=== PATIENT | male | born 1980 | race Caucasian/White ===

== ENCOUNTER 2016-07-01 12:30 | Inpatient (IN) | payer SELFPAY ==
[2016-07-01] VITALS (20 sets, daily range): BP systolic 61–148; BP diastolic 40–105; PULSE 77–150; TEMP 31.3–34.9; O2SAT 88–96
[2016-07-01] MEDS ORDERED: LORAZEPAM 2 MG/ML 1 ML VIAL ONE ×2 (12:35→16:25)
[2016-07-01] MEDS ORDERED: SODIUM CHLORIDE 0.9% INJ 10 ML VIAL ONE (12:35)
[2016-07-01] MEDS ORDERED: SODIUM CHLORIDE 0.9% 1000ML 1,000 ML IV STA ×2 (12:37→14:20)
[2016-07-01] MEDS ORDERED: SODIUM BICARB 8.4% INJ 50 MEQ/50 ML SYR IV ONE ×2 (12:55→12:57)
[2016-07-01 12:56] LABS: HEMATOCRIT 48.1 % (42-52); MEAN CELL VOLUME 95.1 fL (80-100); MEAN CORPUSCULAR HGB CONC 34.7 g/dl (32-36); MEAN PLATELET VOLUME 11.9 fL (7.4-10.4); PLATELET COUNT 218 K/uL (130-400); RED BLOOD COUNT 5.06 M/uL (4.7-6.1); WHITE BLOOD COUNT 11.46 K/uL (4.8-10.8)
[2016-07-01] MEDS ORDERED: FOMEPIZOLE IV STA (12:56)
[2016-07-01] MEDS ORDERED: DEXTROSE 5% IV STA (12:56)
[2016-07-01 13:02] LABS: ISTAT HEMOGLOBIN 16.7 g/dl (14.0-18.0); ISTAT IONIZED CALCIUM 1.23 mmol/l (1.12-1.32)
[2016-07-01 13:05] LABS: INR 1.1 (0.9-1.1); PARTIAL THROMBOPLASTIN RATIO 1.1; PROTHROMBIN TIME (PATIENT) 11.5 SECONDS (9.0-12.0)
[2016-07-01 13:06] LABS: ISTAT ARTERIAL BLOOD GAS HCO3 24 meq/L (19-24); ISTAT ARTERIAL BLOOD GAS PCO2 > 115 mmHg (35-46); ISTAT ARTERIAL BLOOD GAS PO2 290 mmHg (80-95); ISTAT CARBON DIOXIDE 28 mEq/l (24-31); ISTAT HEMATOCRIT 46 % (42-52); ISTAT HEMOGLOBIN 15.6 g/dl (14.0-18.0); ISTAT SODIUM 139 mEq/L (135-144)
[2016-07-01 13:18] LABS: BENZODIAZEPINE, URINE NEG (NEG); COCAINE,URINE NEG (NEG); MANUAL MICROSCOPIC REQUIRED? YES; PHENCYCLIDINE, URINE NEG (NEG); URINE APPEARANCE TURBID (CLEAR); URINE BILIRUBIN NEG (NEG); URINE COLOR YELLOW; URINE NITRITE NEG (NEG); URINE PH 6.5 (4.5-7.5); URINE SPECIFIC GRAVITY 1.025 (1.000-1.030); UROBILINOGEN NEG (NEG)
[2016-07-01 13:20] LABS: ALT/SGPT 35 U/L (12-78); AST/SGOT 27 U/L (15-37); BLOOD UREA NITROGEN 14 mg/dl (7-18); BUN/CREATININE RATIO 9.3 (10-20); CALCIUM 8.6 mg/dl (8.5-10.1); CARBON DIOXIDE 23 mmol/L (21-32); CHLORIDE 106 mmol/L (98-107); GLUCOSE 253 mg/dl (70-99); POTASSIUM 3.2 mmol/L (3.5-5.1); SODIUM 144 mmol/L (136-145)
[2016-07-01 13:21] LABS: REVIEW REQ? NO
[2016-07-01 13:31] LABS: ACETAMINOPHEN < 2 ug/ml (10-30); ALB/GLOB RATIO 1.5 (0.9-2); ALKALINE PHOSPHATASE 63 U/L (45-117); CKMB/CK RATIO 0.9 (0-3.0)
--- NOTE | 2016-07-01 13:32 | DIAGNOSTIC IMAGING REPORT ---
CHEST ONE VIEW PORTABLE CLINICAL HISTORY: Atypical chest pain. Cardiac arrest. COMPARISON STUDY: No previous studies for comparison. FINDINGS: The heart is normal in size. There is an endotracheal tube 34 mm above the jordan. There are patchy left basilar airspace opacities. This could represent pneumonia, aspiration, or atelectasis. No pleural effusions are visualized on the supine study. A focus of increased density injected over the left hemidiaphragm medially, likely represents fluid in the stomach.[ There is no failure. IMPRESSION: 1. Endotracheal tube 34 mm above the jordan 2. Patchy left basilar airspace opacities Electronically signed by: Marino Marshall M.D. 07/01/2016 1:31 PM Dictated Date/Time: 07/01/2016 1:29 PM
[2016-07-01] MEDS ORDERED: [UNRECOGNIZED DRUG - OTHER] IV ONE (13:35)
--- NOTE | 2016-07-01 13:43 | DIAGNOSTIC IMAGING REPORT ---
CT HEAD WITHOUT CONTRAST (CT) CLINICAL HISTORY: Cardiac arrest. Overdose. Patient in coma. COMPARISON STUDY: No previous studies for comparison. TECHNIQUE: Axial CT of the brain is performed from the vertex to the skull base. IV contrast was not administered for this examination. CT DOSE: 1237.28 mGy.cm FINDINGS: No intra or extra-axial mass lesions are visualized. There is no CT evidence of acute cortical infarction. There is no evidence of midline shift. There is no acute hemorrhage. No calvarial fractures are visualized. There is no evidence of pathologic ventricular dilatation. There are bilateral maxilla sinus air-fluid levels. There are bilateral sphenoid sinus air-fluid levels. There is opacification of several ethmoid air cells. There is a small left frontal sinus air-fluid level. IMPRESSION: 1. Pansinus disease 2. No acute intracranial findings. Electronically signed by: Marino Marshall M.D. 07/01/2016 1:41 PM Dictated Date/Time: 07/01/2016 1:40 PM
--- NOTE | 2016-07-01 13:46 | DIAGNOSTIC IMAGING REPORT ---
CT OF THE CERVICAL SPINE CLINICAL HISTORY: Trauma. Overdose. Cardiac arrest. Patient in coma. COMPARISON STUDY: No previous studies for comparison. CT DOSE: TECHNIQUE: CT scan of the cervical spine was performed from the skull base to the thoracic inlet. Images are reviewed in the axial, sagittal, and coronal planes. IV contrast was not administered for this examination. FINDINGS: There is an indwelling endotracheal tube. There is no pneumothorax. There is a right maxillary sinus air-fluid level. The prevertebral soft tissues are normal. No fractures or subluxations are visualized. There are multilevel degenerative changes IMPRESSION: No evidence of acute fracture or traumatic subluxation. Electronically signed by: Marino Marshall M.D. 07/01/2016 1:45 PM Dictated Date/Time: 07/01/2016 1:42 PM
[2016-07-01 13:49] LABS: URINE SPERM PRESENT (NONE PRSENT)
--- NOTE | 2016-07-01 13:49 | DIAGNOSTIC IMAGING REPORT ---
CT SCAN OF THE THORACIC SPINE WITHOUT IV CONTRAST CLINICAL HISTORY: Fall. COMPARISON STUDY: Lateral chest x-ray dated 08/10/2008. TECHNIQUE: CT scan of the thoracic spine is performed from the lower cervical spine to the upper lumbar spine. Images are reviewed in the axial, sagittal, and coronal planes. IV contrast was not administered for this examination. FINDINGS: The skeletal structures are well mineralized. There is no evidence of fracture or malalignment. Vertebral body height and alignment are maintained throughout the thoracic spine. The transverse and spinous processes appear intact. No lytic or blastic lesions are seen. The intervertebral disc spaces are preserved. The visualized posterior ribs appear intact. A hemangioma is noted in the body of T3. The paraspinous soft tissues are normal as visualized. An endotracheal tube terminates above the jordan. There are trace pleural effusions with bibasilar consolidation, left greater than right. No pneumothorax is identified. Layering secretions are seen in the trachea and mainstem bronchi. IMPRESSION: 1. There is no evidence of fracture or malalignment involving the thoracic spine. 2. Trace pleural effusions with bibasilar consolidation. This could represent atelectasis, an aspiration event, and/or developing pneumonia. Clinical correlation will be required. Electronically signed by: Shyam Mancia M.D. 07/01/2016 1:47 PM Dictated Date/Time: 07/01/2016 1:42 PM
[2016-07-01 13:50] LABS: URINE BACTERIA 1+ (NEG)
--- NOTE | 2016-07-01 13:52 | DIAGNOSTIC IMAGING REPORT ---
LUMBAR SPINE CT CT DOSE: HISTORY: Trauma. Pain. fall TECHNIQUE: Multiaxial CT images of the lumbar spine were performed and reformatted in the sagittal and coronal plane without the use of contrast. COMPARISON: None. FINDINGS: Normal alignment of the vertebral bodies. No evidence for compression deformity. Posterior elements are intact. Mild degenerative intervertebral this change L2-L3 with mild anterior osteophytic formation at the anterior superior margin of the L3 vertebral body. IMPRESSION: No acute process Electronically signed by: Jeff Llamas M.D. 07/01/2016 1:51 PM Dictated Date/Time: 07/01/2016 1:47 PM
--- NOTE | 2016-07-01 13:53 | DIAGNOSTIC IMAGING REPORT ---
CT OF THE CHEST WITHOUT IV CONTRAST CLINICAL HISTORY: Trauma. Cardiac arrest. Overdose. Patient in coma. COMPARISON STUDY: 03/18/2010 CT DOSE: TECHNIQUE: CT of the thorax was performed from the thoracic inlet to the lung bases. Images are reviewed in the axial, sagittal, and coronal planes. IV contrast was not administered for this examination. FINDINGS: Thyroid: Imaged portions of the thyroid gland are normal in appearance. Thoracic aorta: The thoracic aorta is normal in course and caliber, noting standard 3 vessel arch anatomy. Heart: The heart is normal in size and configuration, without pericardial effusion. Lungs and pleural spaces: There are left lower lobe airspace opacities. There is fluid within the lower lobe bronchi. This is more pronounced on the left. There are minor dependent right lower lobe airspace opacities. Given history of cardiac arrest, the findings may be secondary to aspiration. Atelectasis or pneumonia could appear similar. Mediastinum: There is no mediastinal lymphadenopathy. There is an endotracheal tube positioned approximately 3 cm above the jordan. [place]: Clear. Axilla: Clear. Upper abdomen: Partially visualized upper abdominal viscera is within normal limits. Skeletal structures: There are no lytic or blastic osseous lesions. IMPRESSION: 1. Endotracheal tube 3 cm above the jordan 2. Moderate left basal airspace opacities and minor right basilar airspace opacities. There is lower lobe mucus plugging with moderate fluid present likely within left lower lobe bronchi. Given the clinical history, aspiration was be considered 3. No evidence of acute intrathoracic injury on this noncontrast study. Electronically signed by: Marino Marshall M.D. 07/01/2016 1:51 PM Dictated Date/Time: 07/01/2016 1:46 PM
--- NOTE | 2016-07-01 13:57 | DIAGNOSTIC IMAGING REPORT ---
CT SCAN OF THE ABDOMEN AND PELVIS WITHOUT IV CONTRAST CLINICAL HISTORY: Trauma. Fall. COMPARISON STUDY: Abdominal CT dated 05/09/2013. TECHNIQUE: CT scan of the abdomen and pelvis is performed from the lung bases to the proximal femora. Images are reviewed in the axial, sagittal, and coronal planes. IV contrast was not administered for this examination as per the referring clinician. Note that the examination was performed in significantly suboptimal fashion without IV contrast. The examination is also degraded by streak artifact from the patient's arms which could not be elevated above the abdomen. Automated dose control exposure was utilized. FINDINGS: Lung bases: The heart is normal in size and without pericardial effusion. There are trace pleural effusions and bibasilar consolidation, left greater than right. Liver: Evaluation of the liver is significantly degraded by streak artifact. The unenhanced liver is normal in size, contour, and attenuation. There is no intrahepatic biliary ductal dilatation. Gallbladder: Unremarkable. Spleen: Normal in size and attenuation. Pancreas: Unremarkable. Adrenal glands: Unremarkable. Kidneys: The unenhanced kidneys are normal in size and without hydronephrosis. There are no renal calculi identified. There is no evidence of contour deforming renal mass lesion. Abdominal vasculature: The abdominal aorta is normal in course and caliber. Bowel: The small bowel loops appear mildly distended and fluid-filled. No wall thickening is identified. There is no pneumatosis intestinalis or portal venous gas. No bowel obstruction is seen. The appendix is well-visualized and normal. Peritoneum: There is no intraperitoneal free air or abdominal ascites. Lymphadenopathy: None. Pelvic viscera: The bladder is decompressed around a Hester catheter. The bladder wall appears thickened and pericystic stranding is noted. The prostate and seminal vesicles are normal as visualized. Skeletal structures: No lytic or blastic lesions are seen. IMPRESSION: 1. Significantly suboptimal examination without IV contrast for assessment of trauma. The examination is also degraded by extensive streak artifact. 2. There is no evidence of solid organ injury in the abdomen or pelvis on this unenhanced examination. 3. No fracture is seen. 4. There are trace pleural effusions and bibasilar consolidation, left greater than right. This could represent atelectasis, an aspiration event, and/or developing pneumonia. 5. Although decompressed around a Hester catheter, the bladder appears mildly thick walled and there is pericystic stranding. Correlation with clinical findings and urinalysis will be required. 6. The small bowel appear mildly distended and fluid-filled and this may represent mild ileus. No significant wall thickening is identified. Clinical correlation will be required. Electronically signed by: Shyam Mancia M.D. 07/01/2016 1:55 PM Dictated Date/Time: 07/01/2016 1:47 PM
[2016-07-01] MEDS ORDERED: SODIUM CHLORIDE 0.9% IV SCH (14:00)
[2016-07-01] MEDS ORDERED: [UNRECOGNIZED DRUG - OTHER] IV SCH (14:00)
[2016-07-01] MEDS ORDERED: ATROPINE SULFATE 0.1 MG/ML 5ML SYR ONE (14:02)
[2016-07-01] MEDS ORDERED: MIDAZOLAM 125MG/250ML D5W 250 ML IV PRN (14:15)
[2016-07-01 14:23] LABS: ISTAT ALLEN TEST Pass; ISTAT ARTERIAL BLOOD GAS HCO3 27 meq/L (19-24); ISTAT ARTERIAL BLOOD GAS PCO2 103 mmHg (35-46); ISTAT ARTERIAL BLOOD GAS PO2 380 mmHg (80-95); ISTAT ARTERIAL BLOOD GAS pH 7.02 (7.35-7.45); ISTAT CARBON DIOXIDE 30 mEq/l (24-31); ISTAT DELIVERY SYSTEM Ventilator; ISTAT FIO2 100 %; ISTAT PEEP 5; ISTAT RATE 24; ISTAT SITE L Radial; VE 11.4; Vt 500
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
[2016-07-01] MEDS ORDERED: NORMOSOL R 1,000 ML IV SCH (14:45)
[2016-07-01] MEDS ORDERED: METOPROLOL TARTRATE 1 MG/ML VIAL ONE (15:14)
[2016-07-01] MEDS ORDERED: METOPROLOL TARTRATE 1 MG/ML VIAL IV ONE (15:30)
[2016-07-01 15:34] LABS: ARTERIAL BLD GAS O2 SATURATION 93.4 % (90-95); ARTERIAL BLOOD GAS BASE EXCESS -7.3 mEq/L (-9-1.8); ARTERIAL BLOOD GAS HCO3 20 mmol/L (19-24); ARTERIAL BLOOD GAS PO2 71 mm/Hg (80-95); ARTERIAL BLOOD GAS pH 7.26 (7.35-7.45)
[2016-07-01 15:36] LABS: O2 ADMINISTRATION 100%
--- NOTE | 2016-07-01 16:05 | Critical Care Consultation ---
Critical Care Consultation Date of Consultation: Jul 01, 2016. Attending Physician: Sam Kapoor M.D. Reason for Consultation: Patient unresponsive/overdose History of Present Illness Attending: Dr. Quintero This is a 36-year-old male that was found unresponsive by his mother and his home. The patient apparently was scheduled for arrest and hearing with anticipated incarceration this afternoon. A suicide note was found at the patient's residence by police. The patient is a dixon. There is no evidence of firearms, pill containers, prescription medications, ethanol at the patient's home. 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 The patient was found to be cyanotic upon arrival of EMS and was intubated in the field without difficulty. He apparently had a rhythm which demonstrated asystole and was given epinephrine 1. He had spontaneous return of heart rate. In the emergency room, the patient was found to be diaphoretic with hypothermia with a temperature of 32C. A CT scan of the head, chest, abdomen and pelvis, cervical spine, thoracic spine, and lumbar spine was performed with no significant findings. The patient was then transferred to the intensive care unit in room 104. He was given 2-JANE and aggressive fluid resuscitation including Normosol at 200 mL via a fluid warmer. An EEG was performed and showed continuous seizure activity. Patient was started on a Versed drip with a bolus of 4 mg and a rate of 5 mg per hour. Patient was also given 4 mg of IV lorazepam followed by an additional 2 mg of IV lorazepam and then loaded with 1 g of IV Keppra. Neurology was consulted and suggests transfer to a tertiary facility for continuous EEG monitoring. The patient is not and has no children. The patient's parents are at the bedside. 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 No silo or silage exposure No history of farming injury Smoking Status: Never Smoker Smokeless Tobacco Use: No Alcohol Use: none Drug Use: none Marital Status: single Housing Status: lives alone Occupation Status: employed (self-employed as a dixon) Allergies Coded Allergies: Peanut (Verified Allergy, Mild, HIVES, 07/01/16) Current Inpatient Medications Current Inpatient Medications Medications (Trade) Dose Ordered Sig/Fuad Route Start Time Stop Time Status Last Admin Dose Admin Pralidoxime Chloride 1 gm/ Sodium Chloride 100 ml @ 200 mls/hr TODAY@1400 IV 07/01/16 14:00 07/01/16 21:00 07/01/16 14:07 200 MLS/HR Midazolam HCl 250 ml @ 0 mls/hr Q0M PRN IV 07/01/16 14:15 07/31/16 14:14 07/01/16 15:17 5 MLS/HR Parenteral Electrolyte Solution (Normosol R) 1,000 ml @ 200 mls/hr Q5H IV 07/01/16 14:45 07/31/16 14:44 07/01/16 14:52 200 MLS/HR Review of Systems Unable to provide secondary to patient condition Physical Exam Date Time Temp Pulse Resp B/P Pulse Ox O2 Delivery O2 Flow Rate FiO2 07/01/16 15:34 168 108/69 07/01/16 15:25 172 143/101 07/01/16 14:15 50 07/01/16 13:24 84 18 105/56 100 Mechanical Ventilator 07/01/16 12:46 97 Mechanical Ventilator 15.0 100 07/01/16 12:45 91 07/01/16 12:45 100 07/01/16 12:33 36.1 90 18 126/64 97 Mechanical Ventilator 15.0 100 GENERAL : No acute distress. Patient is unresponsive EYES: No icterus, gaze conjugate. Pupils are fixed NOSE: No evidence of epistaxis. No evidence of septal breech MOUTH: No lesions or candidiasis. Tongue is midline. Endotracheal tube is in place NECK: Supple. No appreciation of carotid bruits or stridor. No evidence of air leak around endotracheal tube LUNGS: CTA B/L, no wheezes, rales or rhonchi. HEART: Regular, rate controlled. No appreciation of ectopy ABDOMEN: Soft, NT, ND, BS Present. EXTREMITIES: No LE edema, pedal pulses intact. NEURO: Unresponsive. Pupils unresponsive. No intentional movement. Bilateral lower extremities with cogwheeling and ratcheting. Bilateral upper extremities flaccid Laboratory Results Last 24 Hours Test 07/01/16 12:25 07/01/16 12:45 07/01/16 12:47 07/01/16 13:06 White Blood Count 11.46 K/uL Red Blood Count 5.06 M/uL Hemoglobin 16.7 g/dL Hematocrit 48.1 % Mean Corpuscular Volume 95.1 fL Mean Corpuscular Hemoglobin 33.0 pg Mean Corpuscular Hemoglobin Concent 34.7 g/dl RDW Standard Deviation 45.3 fL RDW Coefficient of Variation 13.2 % Platelet Count 218 K/uL Mean Platelet Volume 11.9 fL Prothrombin Time 11.5 SECONDS Prothromb Time International Ratio 1.1 Activated Partial Thromboplast Time 27.3 SECONDS Partial Thromboplastin Ratio 1.1 Sodium Level 144 mmol/L Potassium Level 3.2 mmol/L Chloride Level 106 mmol/L Carbon Dioxide Level 23 mmol/L Anion Gap 15.0 mmol/L 21.0 mmol/L Blood Urea Nitrogen 14 mg/dl Creatinine 1.50 mg/dl Estimated GFR () 69.4 Estimated GFR (Non- 59.9 BUN/Creatinine Ratio 9.3 Random Glucose 253 mg/dl Osmolality 312 mOsm/kg Calcium Level 8.6 mg/dl Total Bilirubin 0.8 mg/dl Aspartate Amino Transf (AST/SGOT) 27 U/L Alanine Aminotransferase (ALT/SGPT) 35 U/L Alkaline Phosphatase 63 U/L Total Creatine Kinase 119 U/L Creatine Kinase MB 1.1 ng/ml Creatine Kinase MB Ratio 0.9 Troponin I < 0.015 ng/ml Total Protein 7.6 gm/dl Albumin 4.5 gm/dl Globulin 3.1 gm/dl Albumin/Globulin Ratio 1.5 Thyroid Stimulating Hormone (TSH) 2.940 uIu/ml Free Thyroxine 2.09 ng/dl Salicylates Level < 1.7 mg/dl Acetaminophen Level < 2 ug/ml Bedside Hemoglobin 16.7 g/dl 15.6 g/dl Bedside Hematocrit 49 % 46 % Urine Color YELLOW Urine Appearance TURBID Urine pH 6.5 Urine Specific [place] 1.025 Urine Protein 2+ Urine Glucose (UA) NEG Urine Ketones NEG Urine Occult Blood TRACE Urine Nitrite NEG Urine Bilirubin NEG Urine Urobilinogen NEG Urine Leukocyte Esterase NEG Urine RBC 10-30 /hpf Urine WBC 10-30 /hpf Urine Epithelial Cells 0-5 /lpf Urine Bacteria 1+ Urine Sperm PRESENT Urine Osmolality 629 mOms/kg Bedside Sodium 143 mEq/L 139 mEq/L Bedside Potassium 3.1 mEq/L 3.4 mEq/L Bedside Chloride 102 mEq/L Bedside Total CO2 24 mEq/l Bedside Blood Urea Nitrogen 14 mg/dl Bedside Creatinine 1.0 mg/dl Bedside Glucose (other) 258 mg/dl Bedside Ionized Calcium (Regina) 1.23 mmol/l Urine Opiates Screen NEG Urine Methadone, Qualitative NEG Urine Barbiturates NEG Urine Phencyclidine (PCP) Level NEG Ur Amphetamine/Methamphetamine NEG MDMA (Ecstasy) Screen NEG Urine Benzodiazepines Screen NEG Urine Cocaine Metabolite NEG Urine Marijuana (THC) NEG Bedside Blood Gas pH (LAB) 6.90 Bedside Blood Gas pCO2 (LAB) > 115 mmHg Bedside Blood Gas pO2 (LAB) 290 mmHg Bedside Blood Gas HCO3 (LAB) 24 meq/L Bedside Blood Gas Total CO2 28 mEq/l Bedside Blood Gas Base Excess (LAB) -9.0 meq/L Bedside Blood Gas O2 Saturation 100.0 % Bedside Lactic Acid Venous 6.74 mmol/L Test 07/01/16 13:15 07/01/16 13:58 07/01/16 14:31 07/01/16 15:15 Ethyl Alcohol mg/dL < 3.0 mg/dl Blood Gas Sample Site L Radial Bedside Blood Gas pH (LAB) 7.02 Bedside Blood Gas pCO2 (LAB) 103 mmHg Bedside Blood Gas pO2 (LAB) 380 mmHg Bedside Blood Gas HCO3 (LAB) 27 meq/L Bedside Blood Gas Total CO2 30 mEq/l Bedside Blood Gas Base Excess (LAB) -4.0 meq/L Bedside Blood Gas O2 Saturation 100.0 % Jeanmarie Test Pass Oxygen Delivery Device Ventilator Bedside Oxygen Rate (breaths/min) 24 Blood Gas Minute Ventilation 11.4 Bedside FiO2 100 % Blood Gas Tidal Volume 500 Blood Gas PEEP 5 Test 07/01/16 15:25 07/01/16 15:44 Arterial Blood pH 7.26 Arterial Blood Partial Pressure CO2 44 mmHg Arterial Blood Partial Pressure O2 71 mm/Hg Arterial Blood HCO3 20 mmol/L Arterial Blood Oxygen Saturation 93.4 % Arterial Blood Base Excess -7.3 mEq/L Arterial Blood Gas Delivery 100% Jeanmarie Test Diagnostic Results CT HEAD WITHOUT CONTRAST (CT) CLINICAL HISTORY: Cardiac arrest. Overdose. Patient in coma. COMPARISON STUDY: No previous studies for comparison. TECHNIQUE: Axial CT of the brain is performed from the vertex to the skull base. IV contrast was not administered for this examination. CT DOSE: 1237.28 mGy.cm FINDINGS: No intra or extra-axial mass lesions are visualized. There is no CT evidence of acute cortical infarction. There is no evidence of midline shift. There is no acute hemorrhage. No calvarial fractures are visualized. There is no evidence of pathologic ventricular dilatation. There are bilateral maxilla sinus air-fluid levels. There are bilateral sphenoid sinus air-fluid levels. There is opacification of several ethmoid air cells. There is a small left frontal sinus air-fluid level. IMPRESSION: 1. Pansinus disease 2. No acute intracranial findings. Electronically signed by: Marino Marshall M.D. 07/01/2016 1:41 PM CHEST ONE VIEW PORTABLE CLINICAL HISTORY: Atypical chest pain. Cardiac arrest. COMPARISON STUDY: No previous studies for comparison. FINDINGS: The heart is normal in size. There is an endotracheal tube 34 mm above the jordan. There are patchy left basilar airspace opacities. This could represent pneumonia, aspiration, or atelectasis. No pleural effusions are visualized on the supine study. A focus of increased density injected over the left hemidiaphragm medially, likely represents fluid in the stomach.[ There is no failure. IMPRESSION: 1. Endotracheal tube 34 mm above the jordan 2. Patchy left basilar airspace opacities Electronically signed by: Marino Marshall M.D. 07/01/2016 1:[address] SCAN OF THE THORACIC SPINE WITHOUT IV CONTRAST CLINICAL HISTORY: Fall. COMPARISON STUDY: Lateral chest x-ray dated 08/10/2008. TECHNIQUE: CT scan of the thoracic spine is performed from the lower cervical spine to the upper lumbar spine. Images are reviewed in the axial, sagittal, and coronal planes. IV contrast was not administered for this examination. FINDINGS: The skeletal structures are well mineralized. There is no evidence of fracture or malalignment. Vertebral body height and alignment are maintained throughout the thoracic spine. The transverse and spinous processes appear intact. No lytic or blastic lesions are seen. The intervertebral disc spaces are preserved. The visualized posterior ribs appear intact. A hemangioma is noted in the body of T3. The paraspinous soft tissues are normal as visualized. An endotracheal tube terminates above the jordan. There are trace pleural effusions with bibasilar consolidation, left greater than right. No pneumothorax is identified. Layering secretions are seen in the trachea and mainstem bronchi. IMPRESSION: 1. There is no evidence of fracture or malalignment involving the thoracic spine. 2. Trace pleural effusions with bibasilar consolidation. This could represent atelectasis, an aspiration event, and/or developing pneumonia. Clinical correlation will be required. Electronically signed by: Shyam Mancia M.D. 07/01/2016 1:[address] DOSE: HISTORY: Trauma. Pain. fall TECHNIQUE: Multiaxial CT images of the lumbar spine were performed and reformatted in the sagittal and coronal plane without the use of contrast. COMPARISON: None. FINDINGS: Normal alignment of the vertebral bodies. No evidence for compression deformity. Posterior elements are intact. Mild degenerative intervertebral this change L2-L3 with mild anterior osteophytic formation at the anterior superior margin of the L3 vertebral body. IMPRESSION: No acute process Electronically signed by: Jeff Llamas M.D. 07/01/2016 1:[address] OF THE CERVICAL SPINE CLINICAL HISTORY: Trauma. Overdose. Cardiac arrest. Patient in coma. COMPARISON STUDY: No previous studies for comparison. CT DOSE: TECHNIQUE: CT scan of the cervical spine was performed from the skull base to the thoracic inlet. Images are reviewed in the axial, sagittal, and coronal planes. IV contrast was not administered for this examination. FINDINGS: There is an indwelling endotracheal tube. There is no pneumothorax. There is a right maxillary sinus air-fluid level. The prevertebral soft tissues are normal. No fractures or subluxations are visualized. There are multilevel degenerative changes IMPRESSION: No evidence of acute fracture or traumatic subluxation. Electronically signed by: Marino Marshall M.D. 07/01/2016 1:[address] OF THE CHEST WITHOUT IV CONTRAST CLINICAL HISTORY: Trauma. Cardiac arrest. Overdose. Patient in coma. COMPARISON STUDY: 03/18/2010 CT DOSE: TECHNIQUE: CT of the thorax was performed from the thoracic inlet to the lung bases. Images are reviewed in the axial, sagittal, and coronal planes. IV contrast was not administered for this examination. FINDINGS: Thyroid: Imaged portions of the thyroid gland are normal in appearance. Thoracic aorta: The thoracic aorta is normal in course and caliber, noting standard 3 vessel arch anatomy. Heart: The heart is normal in size and configuration, without pericardial effusion. Lungs and pleural spaces: There are left lower lobe airspace opacities. There is fluid within the lower lobe bronchi. This is more pronounced on the left. There are minor dependent right lower lobe airspace opacities. Given history of cardiac arrest, the findings may be secondary to aspiration. Atelectasis or pneumonia could appear similar. Mediastinum: There is no mediastinal lymphadenopathy. There is an endotracheal tube positioned approximately 3 cm above the jordan. Santa: Clear. Axilla: Clear. Upper abdomen: Partially visualized upper abdominal viscera is within normal limits. Skeletal structures: There are no lytic or blastic osseous lesions. IMPRESSION: 1. Endotracheal tube 3 cm above the jordan 2. Moderate left basal airspace opacities and minor right basilar airspace opacities. There is lower lobe mucus plugging with moderate fluid present likely within left lower lobe bronchi. Given the clinical history, aspiration was be considered 3. No evidence of acute intrathoracic injury on this noncontrast study. Electronically signed by: Marino Marshall M.D. 07/01/2016 1:[address] SCAN OF THE ABDOMEN AND PELVIS WITHOUT IV CONTRAST CLINICAL HISTORY: Trauma. Fall. COMPARISON STUDY: Abdominal CT dated 05/09/2013. TECHNIQUE: CT scan of the abdomen and pelvis is performed from the lung bases to the proximal femora. Images are reviewed in the axial, sagittal, and coronal planes. IV contrast was not administered for this examination as per the referring clinician. Note that the examination was performed in significantly suboptimal fashion without IV contrast. The examination is also degraded by streak artifact from the patient's arms which could not be elevated above the abdomen. Automated dose control exposure was utilized. FINDINGS: Lung bases: The heart is normal in size and without pericardial effusion. There are trace pleural effusions and bibasilar consolidation, left greater than right. Liver: Evaluation of the liver is significantly degraded by streak artifact. The unenhanced liver is normal in size, contour, and attenuation. There is no intrahepatic biliary ductal dilatation. Gallbladder: Unremarkable. Spleen: Normal in size and attenuation. Pancreas: Unremarkable. Adrenal glands: Unremarkable. Kidneys: The unenhanced kidneys are normal in size and without hydronephrosis. There are no renal calculi identified. There is no evidence of contour deforming renal mass lesion. Abdominal vasculature: The abdominal aorta is normal in course and caliber. Bowel: The small bowel loops appear mildly distended and fluid-filled. No wall thickening is identified. There is no pneumatosis intestinalis or portal venous gas. No bowel obstruction is seen. The appendix is well-visualized and normal. Peritoneum: There is no intraperitoneal free air or abdominal ascites. Lymphadenopathy: None. Pelvic viscera: The bladder is decompressed around a Hester catheter. The bladder wall appears thickened and pericystic stranding is noted. The prostate and seminal vesicles are normal as visualized. Skeletal structures: No lytic or blastic lesions are seen. IMPRESSION: 1. Significantly suboptimal examination without IV contrast for assessment of trauma. The examination is also degraded by extensive streak artifact. 2. There is no evidence of solid organ injury in the abdomen or pelvis on this unenhanced examination. 3. No fracture is seen. 4. There are trace pleural effusions and bibasilar consolidation, left greater than right. This could represent atelectasis, an aspiration event, and/or developing pneumonia. 5. Although decompressed around a Hester catheter, the bladder appears mildly thick walled and there is pericystic stranding. Correlation with clinical findings and urinalysis will be required. 6. The small bowel appear mildly distended and fluid-filled and this may represent mild ileus. No significant wall thickening is identified. Clinical correlation will be required. Electronically signed by: Shyam Mancia M.D. 07/01/2016 1:55 PM CHEST ONE VIEW PORTABLE HISTORY: Central Line Placement COMPARISON: Chest 07/01/2016. FINDINGS: Endotracheal tube terminates approximate 5.4 cm from the jordan. Right subclavian central venous catheter terminates at the proximal SVC. No pneumothorax. No pleural effusions. Nasogastric tube terminates in the proximal stomach. The heart is normal in size. Small patchy left retrocardiac density persists. IMPRESSION: 1. Endotracheal tube terminates 5.4 cm from the jordan. 2. Right subclavian central venous catheter terminates in the proximal SVC. No pneumothorax. 3. Nasogastric tube terminates in the proximal stomach. The fenestrated line is at the gastroesophageal junction. This should be advanced by approximately 5 cm. 3. Small patchy left retrocardiac density persists. This may represent a pneumonia secondary to aspiration. Electronically signed by: Jesus Napoles M.D. 07/01/2016 4:40 PM Assessment & Plan INTENTIONAL OVERDOSE Social issues leading to suicide attempt Unknown agent but suspect organophosphate poisoning Received 2-JANE and atropine Aggressive fluid resuscitation with normal salt 200 mg per hour, to 100 mg per hour Toxicology screening completely negative Endotracheal intubation in the field currently on mechanical ventilation EEG with continuous seizures - See below for treatment Serum osmolality 312 Lactic acid 6.74 Plasma cholinesterase pending SEIZURES No history of seizure activity EEG with continuous seizures Bolus of 4 mg of midazolam with no breakthrough Patient and given 4 mg of lorazepam with intermittent breakthrough Patient then given two additional milligrams of lorazepam Started on a midazolam drip 5 mg/h Keppra 1 g loading dose IV administered Neurology consulted Recommended transfer for continuous EEG a tertiary facility CARDIAC No first degree relative history of heart disease Grandfather with early CT and pacemaker Patient found to be cyanotic by EMS with rhythm of asystole Received epinephrine 1 with spontaneous return of heartbeat Currently hemodynamically stable without pressors EKG with atrial fibrillation 5 mg of Lopressor IV administered ID Patient hypothermic on arrival WBC 11.46 Panculture collected No recent illness per family UA with yellow turbid urine with pH of 6.5 specific gravity 1.025, protein 2+, trace occult blood, no nitrite or esterase bilirubin urobilinogen Urine osmolality 629 HIV one RNA pending HIV one and two antibody/P 24 antigen fourth-generation negative ELECTROLYTES Potassium 3.4 Sodium 139 Calcium 8.6 Ionize calcium 1.23 Currently normal sinus rhythm in the 80s RENAL BUN 14 Attending 1.5 Continue fluid hydration SPINAL STENOSIS History of spinal stenosis CT scan of the spine negative No recent treatment or orthopedic intervention per family IV ACCESS Right subclavian triple-lumen catheter placed Chest x-ray with tip in the superior IVC No evidence of pneumothorax DVT PROPHYLAXIS SCDs CCT: 120 minutes including placement of subclavian catheter and discussion with parents and other providers Please refer to Dr. Quintero's addendum for further recommendations I have personally evaluated and examined this patient. I agree with assessment and plan of Lester Del Real PA-C. Briefly, patient is a 36-year-old male with a reported intentional drug overdose , unknown medication, found by mother, hypoxic and blue. Questionable seizure activity reported by EMS after return of spontaneous circulation after one round of ACLS medication. Was profoundly acidemic in the emergency department, given 3 A of bicarbonate, CT scan of the head spine and chest and pelvis obtained. Patient had a high gap metabolic acidosis, however osmolar gap excluded toxic alcohol ingestion, while labs were pending patient was given 1 dose of fomepizole. Tylenol and salicylates remain negative, UDS was also negative. Patient's parents are farmers, he had reportedly worked on the forearm as well possible access to insecticides. In the emergency department he exhibited clinical toxidrome consistent with cholinergic crisis. He had copious oral secretions, profuse sweating, and lacrimation. Patient was given atropine and an initial dose of 1 g of 2-JANE chloride for any possible organophosphate exposure. Most commercial insecticides and the [place] are carbamates, there is a lower risk of aging of carbamates. I have attempted to send a red cell cholinesterase activity, this is different from a plasma cholinesterase activity. This however would not provide a definitive diagnosis of a organophosphate poisoning. Patient was found to be in nonconvulsive status, given benzodiazepines and Keppra noted above. I discussed the case with Dr. Fox staff neurologist, we do not have continuous EEG monitoring. The patient is best cared for in a tertiary care center with continuous EEG monitoring capabilities. Patient has been accepted by Dr. Pozo of [facility] and will be transported via helicopter EMS to minimize [id number] transport time. I have personally spent 45 minutes of critical care time in the direct management of this patient. This is a life/limb threatening event. This includes time spent evaluating patient, direct bedside care, chart review, placing orders, interpretation of diagnostic studies, discussion with consultants, patient, and family members, as well as other required patient management activities. This time is exclusive of all separately billable procedures, and teaching time and separate from and in addition to any other critical care service time.
--- NOTE | 2016-07-01 16:18 | Procedure Note ---
Procedure Note Procedure Date Jul 01, 2016. (Shyam Del Real PA-C) Procedure Description Procedure Name: Right subclavian triple lumen catheter Procedure time out: side/site verified Consent obtained: written (by Dr. Quintero) Time of procedure: 15:30 Performed by: physician maintenance parts technician (Shyam Del Real PA-C) Indications: therapeutic Contraindications: none Post-procedure vital signs: reviewed and stable Comments: Using sterile technique, the patient was wet suit gluer with chlorhexidine and placed in a supine position. 1% lidocaine was used to form a wheal at the midclavicular line on the right chest A finder needle was then advanced under the subclavian until a flash was obtained. Blood was then aspirated and the finder needle was stabilized. I attempted to pass the wire but had resistance. The wire was then removed and the finder needle was rotated 90 degrees clockwise. The syringe was attached and blood was obtained. The wire was then easily passed. A nicolasa was made in the skin using a #11 scalpel and an introducer was easily passed through the skin. The triple lumen catheter was then passed over the wire without difficulty to 13cm. All three lines were easy to draw and flush. Claves were attached and a biodisc was placed at the insertion point. Two sutures were used to secure the line and then a Statloc device was used and a sterile dressing was applied. A postprocedure CXR was obtained and showed adequate placement of the central line tip and no pneumothorax was appreciated. The patient tolerated the procedure well with no significant blood loss (Shyam Del Real PA-C) Comments: I was physically present and assisted with the entire procedure (Josué Quintero, D.O.)
[2016-07-01] MEDS ORDERED: LEVETIRACETAM IV 1,000 MG in DEXTROSE 5% 100ML 100 ML IV ONE (16:30)
--- NOTE | 2016-07-01 16:41 | DIAGNOSTIC IMAGING REPORT ---
CHEST ONE VIEW PORTABLE HISTORY: Central Line Placement COMPARISON: Chest 07/01/2016. FINDINGS: Endotracheal tube terminates approximate 5.4 cm from the jordan. Right subclavian central venous catheter terminates at the proximal SVC. No pneumothorax. No pleural effusions. Nasogastric tube terminates in the proximal stomach. The heart is normal in size. Small patchy left retrocardiac density persists. IMPRESSION: 1. Endotracheal tube terminates 5.4 cm from the jordan. 2. Right subclavian central venous catheter terminates in the proximal SVC. No pneumothorax. 3. Nasogastric tube terminates in the proximal stomach. The fenestrated line is at the gastroesophageal junction. This should be advanced by approximately 5 cm. 3. Small patchy left retrocardiac density persists. This may represent a pneumonia secondary to aspiration. Electronically signed by: Jesus Napoles M.D. 07/01/2016 4:40 PM Dictated Date/Time: 07/01/2016 4:38 PM
[2016-07-01] MEDS ORDERED: LORAZEPAM 2 MG/ML 1 ML VIAL IV STA (16:42)
[2016-07-01] MEDS ORDERED: LEVETIRACTAM 1000 MG in DEXTROSE 5% 100ML IV ONE (16:45)
[2016-07-01] MEDS ORDERED: LORAZEPAM 2 MG/ML 1 ML VIAL IV ONE (16:45)
--- NOTE | 2016-07-01 17:22 | EMERGENCY ROOM VISIT NOTE ---
History Report prepared by Devikaibe: Kyle Larsen Under the Supervision of: Dr. Shyam Mcmahan M.D. First contact with patient: 12:27 Stated Complaint: CARDIAC ARREST/ROSC History of Present Illness The patient is a 40 year old male who presents to the Emergency Room with complaints of a resolved cardiac arrest. The patient's family found him unresponsive in his trailer. An ambulance was dispatched at 1143 and was on scene at 1151. Police were on the seen when EMS arrived. By the time EMS arrived , the patient did not have a pulse. EMS performed about 3-4 minutes of CPR and administered one dose of epinephrine. His pulse was successfully reestablished. EMS also noted some convulsions en route and administered a dose of Versed (5 mg IV). The patient's BSG was in the 160s en route. The patient has a history of drug abuse. The patient was supposed to be taken to [facility] later today. The patient may have overdosed. Complete history is limited secondary to unresponsiveness. Later information reveals the patient had written a suicide note and there was concern that the patient had actually drank an unknown substance. Source of History: EMS History Limited By: other (unresponsive) Onset: found by family at 1143 Position: other (heart) Quality: other (cardiac arrest) Timing: resolved Associated Symptoms: + LOC Note: Patient displayed some seizure-like activity. Review of Systems ROS is limited secondary to unresponsiveness. Past Medical & Surgical Medical Problems: (1) Cardiac arrest (2) No known health problems Family History Heart Disease Myocardial Infarction Social History Drug Use: other (history of drug abuse) Housing Status: lives alone Allergies Coded Allergies: Peanut (Verified Allergy, Mild, HIVES, 07/01/16) Physical Exam Vital Signs Date Time Temp Pulse Resp B/P Pulse Ox O2 Delivery O2 Flow Rate FiO2 07/01/16 12:46 97 Mechanical Ventilator 15.0 100 07/01/16 12:45 91 07/01/16 12:45 100 07/01/16 12:33 36.1 90 18 126/64 97 Mechanical Ventilator 15.0 100 Physical Exam GENERAL: Patient is supine on the stretcher, bag valve mask ventilation in process, no spontaneous movements. HEENT: No acute trauma, normocephalic atraumatic, mucous membranes moist, no nasal congestion, no scleral icterus. Pupils are pinpoint but equal, endotracheal tube has been placed orally, copious oral secretions noted NECK: No stridor, no adenopathy, trachea is midline, no obvious debra stepoff appreciated, C-collar was applied. LUNGS: Course breath sounds bilaterally but sounds are equal, breath sounds are full, respiratory rate controlled via bag valve mask. HEART: Irregular rhythm, mildly tachycardic, no murmurs. ABDOMEN: Soft, nontender, bowel sounds positive, no hernias, no peritonitis. BACK: No obvious bony stepoff along thoracic or lumbar spine, no contusions or abrasions seen. EXTREMITIES: No cyanosis or edema, full range of motion of all the joints without pain or difficulty, no signs for acute trauma. NEUROLOGIC: Clonus noted to the lower extremities, upper extremities appear flaccid, occasional spontaneous breaths noted, no spontaneous movement of any extremity.. SKIN: Diaphoretic, no rash. Medical Decision & Procedures ER Provider Diagnostic Interpretation: X ray results and stated below per my interpretation and radiologist interpretation. Other radiology results and stated below per my review and radiologist interpretation: CHEST ONE VIEW PORTABLE CLINICAL HISTORY: Atypical chest pain. Cardiac arrest. COMPARISON STUDY: No previous studies for comparison. FINDINGS: The heart is normal in size. There is an endotracheal tube 34 mm above the jordan. There are patchy left basilar airspace opacities. This could represent pneumonia, aspiration, or atelectasis. No pleural effusions are visualized on the supine study. A focus of increased density injected over the left hemidiaphragm medially, likely represents fluid in the stomach.[ There is no failure. IMPRESSION: 1. Endotracheal tube 34 mm above the jordan 2. Patchy left basilar airspace opacities Electronically signed by: Marino Marshall M.D. 07/01/2016 1:31 PM Dictated Date/Time: 07/01/2016 1:[address] OF THE CHEST WITHOUT IV CONTRAST CLINICAL HISTORY: Trauma. Cardiac arrest. Overdose. Patient in coma. COMPARISON STUDY: 03/18/2010 CT DOSE: TECHNIQUE: CT of the thorax was performed from the thoracic inlet to the lung bases. Images are reviewed in the axial, sagittal, and coronal planes. IV contrast was not administered for this examination. FINDINGS: Thyroid: Imaged portions of the thyroid gland are normal in appearance. Thoracic aorta: The thoracic aorta is normal in course and caliber, noting standard 3 vessel arch anatomy. Heart: The heart is normal in size and configuration, without pericardial effusion. Lungs and pleural spaces: There are left lower lobe airspace opacities. There is fluid within the lower lobe bronchi. This is more pronounced on the left. There are minor dependent right lower lobe airspace opacities. Given history of cardiac arrest, the findings may be secondary to aspiration. Atelectasis or pneumonia could appear similar. Mediastinum: There is no mediastinal lymphadenopathy. There is an endotracheal tube positioned approximately 3 cm above the jordan. [place]: Clear. Axilla: Clear. Upper abdomen: Partially visualized upper abdominal viscera is within normal limits. Skeletal structures: There are no lytic or blastic osseous lesions. IMPRESSION: 1. Endotracheal tube 3 cm above the jordan 2. Moderate left basal airspace opacities and minor right basilar airspace opacities. There is lower lobe mucus plugging with moderate fluid present likely within left lower lobe bronchi. Given the clinical history, aspiration was be considered 3. No evidence of acute intrathoracic injury on this noncontrast study. Electronically signed by: Marino Marshall M.D. 07/01/2016 1:51 PM Dictated Date/Time: 07/01/2016 1:[address] OF THE CERVICAL SPINE CLINICAL HISTORY: Trauma. Overdose. Cardiac arrest. Patient in coma. COMPARISON STUDY: No previous studies for comparison. CT DOSE: TECHNIQUE: CT scan of the cervical spine was performed from the skull base to the thoracic inlet. Images are reviewed in the axial, sagittal, and coronal planes. IV contrast was not administered for this examination. FINDINGS: There is an indwelling endotracheal tube. There is no pneumothorax. There is a right maxillary sinus air-fluid level. The prevertebral soft tissues are normal. No fractures or subluxations are visualized. There are multilevel degenerative changes IMPRESSION: No evidence of acute fracture or traumatic subluxation. Electronically signed by: Marino Marshall M.D. 07/01/2016 1:45 PM Dictated Date/Time: 07/01/2016 1:[address] DOSE: HISTORY: Trauma. Pain. fall TECHNIQUE: Multiaxial CT images of the lumbar spine were performed and reformatted in the sagittal and coronal plane without the use of contrast. COMPARISON: None. FINDINGS: Normal alignment of the vertebral bodies. No evidence for compression deformity. Posterior elements are intact. Mild degenerative intervertebral this change L2-L3 with mild anterior osteophytic formation at the anterior superior margin of the L3 vertebral body. IMPRESSION: No acute process Electronically signed by: Jeff Llamas M.D. 07/01/2016 1:51 PM Dictated Date/Time: 07/01/2016 1:[address] SCAN OF THE THORACIC SPINE WITHOUT IV CONTRAST CLINICAL HISTORY: Fall. COMPARISON STUDY: Lateral chest x-ray dated 08/10/2008. TECHNIQUE: CT scan of the thoracic spine is performed from the lower cervical spine to the upper lumbar spine. Images are reviewed in the axial, sagittal, and coronal planes. IV contrast was not administered for this examination. FINDINGS: The skeletal structures are well mineralized. There is no evidence of fracture or malalignment. Vertebral body height and alignment are maintained throughout the thoracic spine. The transverse and spinous processes appear intact. No lytic or blastic lesions are seen. The intervertebral disc spaces are preserved. The visualized posterior ribs appear intact. A hemangioma is noted in the body of T3. The paraspinous soft tissues are normal as visualized. An endotracheal tube terminates above the jordan. There are trace pleural effusions with bibasilar consolidation, left greater than right. No pneumothorax is identified. Layering secretions are seen in the trachea and mainstem bronchi. IMPRESSION: 1. There is no evidence of fracture or malalignment involving the thoracic spine. 2. Trace pleural effusions with bibasilar consolidation. This could represent atelectasis, an aspiration event, and/or developing pneumonia. Clinical correlation will be required. Electronically signed by: Shyam Mancia M.D. 07/01/2016 1:47 PM Dictated Date/Time: 07/01/2016 1:[address] HEAD WITHOUT CONTRAST (CT) CLINICAL HISTORY: Cardiac arrest. Overdose. Patient in coma. COMPARISON STUDY: No previous studies for comparison. TECHNIQUE: Axial CT of the brain is performed from the vertex to the skull base. IV contrast was not administered for this examination. CT DOSE: 1237.28 mGy.cm FINDINGS: No intra or extra-axial mass lesions are visualized. There is no CT evidence of acute cortical infarction. There is no evidence of midline shift. There is no acute hemorrhage. No calvarial fractures are visualized. There is no evidence of pathologic ventricular dilatation. There are bilateral maxilla sinus air-fluid levels. There are bilateral sphenoid sinus air-fluid levels. There is opacification of several ethmoid air cells. There is a small left frontal sinus air-fluid level. IMPRESSION: 1. Pansinus disease 2. No acute intracranial findings. Electronically signed by: Marino Marshall M.D. 07/01/2016 1:41 PM Dictated Date/Time: 07/01/2016 1:[address] SCAN OF THE ABDOMEN AND PELVIS WITHOUT IV CONTRAST CLINICAL HISTORY: Trauma. Fall. COMPARISON STUDY: Abdominal CT dated 05/09/2013. TECHNIQUE: CT scan of the abdomen and pelvis is performed from the lung bases to the proximal femora. Images are reviewed in the axial, sagittal, and coronal planes. IV contrast was not administered for this examination as per the referring clinician. Note that the examination was performed in significantly suboptimal fashion without IV contrast. The examination is also degraded by streak artifact from the patient's arms which could not be elevated above the abdomen. Automated dose control exposure was utilized. FINDINGS: Lung bases: The heart is normal in size and without pericardial effusion. There are trace pleural effusions and bibasilar consolidation, left greater than right. Liver: Evaluation of the liver is significantly degraded by streak artifact. The unenhanced liver is normal in size, contour, and attenuation. There is no intrahepatic biliary ductal dilatation. Gallbladder: Unremarkable. Spleen: Normal in size and attenuation. Pancreas: Unremarkable. Adrenal glands: Unremarkable. Kidneys: The unenhanced kidneys are normal in size and without hydronephrosis. There are no renal calculi identified. There is no evidence of contour deforming renal mass lesion. Abdominal vasculature: The abdominal aorta is normal in course and caliber. Bowel: The small bowel loops appear mildly distended and fluid-filled. No wall thickening is identified. There is no pneumatosis intestinalis or portal venous gas. No bowel obstruction is seen. The appendix is well-visualized and normal. Peritoneum: There is no intraperitoneal free air or abdominal ascites. Lymphadenopathy: None. Pelvic viscera: The bladder is decompressed around a Hester catheter. The bladder wall appears thickened and pericystic stranding is noted. The prostate and seminal vesicles are normal as visualized. Skeletal structures: No lytic or blastic lesions are seen. IMPRESSION: 1. Significantly suboptimal examination without IV contrast for assessment of trauma. The examination is also degraded by extensive streak artifact. 2. There is no evidence of solid organ injury in the abdomen or pelvis on this unenhanced examination. 3. No fracture is seen. 4. There are trace pleural effusions and bibasilar consolidation, left greater than right. This could represent atelectasis, an aspiration event, and/or developing pneumonia. 5. Although decompressed around a Hester catheter, the bladder appears mildly thick walled and there is pericystic stranding. Correlation with clinical findings and urinalysis will be required. 6. The small bowel appear mildly distended and fluid-filled and this may represent mild ileus. No significant wall thickening is identified. Clinical correlation will be required. Electronically signed by: Shyam Mancia M.D. 07/01/2016 1:55 PM Dictated Date/Time: 07/01/2016 1:47 PM Laboratory Results 07/01/16 12:25 07/01/16 12:25 Test 07/01/16 12:25 07/01/16 12:45 07/01/16 12:47 07/01/16 13:06 Red Blood Count 5.06 M/uL (4.7-6.1) Mean Corpuscular Volume 95.1 fL (80-100) Mean Corpuscular Hemoglobin 33.0 pg (25-34) Mean Corpuscular Hemoglobin Concent 34.7 g/dl (32-36) RDW Standard Deviation 45.3 fL (36.4-46.3) RDW Coefficient of Variation 13.2 % (11.5-14.5) Mean Platelet Volume 11.9 fL (7.4-10.4) Prothrombin Time 11.5 SECONDS (9.0-12.0) Prothromb Time International Ratio 1.1 (0.9-1.1) Activated Partial Thromboplast Time 27.3 SECONDS (21.0-31.0) Partial Thromboplastin Ratio 1.1 Estimated GFR () 69.4 Estimated GFR (Non- 59.9 BUN/Creatinine Ratio 9.3 (10-20) Osmolality 312 mOsm/kg (280-300) Calcium Level 8.6 mg/dl (8.5-10.1) Total Bilirubin 0.8 mg/dl (0.2-1) Aspartate Amino Transf (AST/SGOT) 27 U/L (15-37) Alanine Aminotransferase (ALT/SGPT) 35 U/L (12-78) Alkaline Phosphatase 63 U/L (45-117) Total Creatine Kinase 119 U/L (39-308) Creatine Kinase MB 1.1 ng/ml (0.5-3.6) Creatine Kinase MB Ratio 0.9 (0-3.0) Troponin I < 0.015 ng/ml (0-0.045) Total Protein 7.6 gm/dl (6.4-8.2) Albumin 4.5 gm/dl (3.4-5.0) Globulin 3.1 gm/dl (2.5-4.0) Albumin/Globulin Ratio 1.5 (0.9-2) Thyroid Stimulating Hormone (TSH) 2.940 uIu/ml (0.300-4.500) Free Thyroxine 2.09 ng/dl (0.80-1.60) Salicylates Level < 1.7 mg/dl (2.8-20) Acetaminophen Level < 2 ug/ml (10-30) Urine Color YELLOW Urine Appearance TURBID (CLEAR) Urine pH 6.5 (4.5-7.5) Urine Specific [place] 1.025 (1.000-1.030) Urine Protein 2+ (NEG) Urine Glucose (UA) NEG (NEG) Urine Ketones NEG (NEG) Urine Occult Blood TRACE (NEG) Urine Nitrite NEG (NEG) Urine Bilirubin NEG (NEG) Urine Urobilinogen NEG (NEG) Urine Leukocyte Esterase NEG (NEG) Urine RBC 10-30 /hpf (0-4) Urine WBC 10-30 /hpf (0-5) Urine Epithelial Cells 0-5 /lpf (0-5) Urine Bacteria 1+ (NEG) Urine Sperm PRESENT (NONE PRSENT) Urine Osmolality 629 mOms/kg (500-800) Bedside Chloride 102 mEq/L (101-112) Bedside Total CO2 24 mEq/l (24-31) Anion Gap 21.0 mmol/L (16-25) Bedside Blood Urea Nitrogen 14 mg/dl (7-18) Bedside Creatinine 1.0 mg/dl (0.6-1.3) Bedside Glucose (other) 258 mg/dl (70-99) Bedside Ionized Calcium (Regina) 1.23 mmol/l (1.12-1.32) Urine Opiates Screen NEG (NEG) Urine Methadone, Qualitative NEG (NEG) Urine Barbiturates NEG (NEG) Urine Phencyclidine (PCP) Level NEG (NEG) Ur Amphetamine/Methamphetamine NEG (NEG) MDMA (Ecstasy) Screen NEG (NEG) Urine Benzodiazepines Screen NEG (NEG) Urine Cocaine Metabolite NEG (NEG) Urine Marijuana (THC) NEG (NEG) Bedside Hemoglobin 15.6 g/dl (14.0-18.0) Bedside Hematocrit 46 % (42-52) Bedside Sodium 139 mEq/L (135-144) Bedside Potassium 3.4 mEq/L (3.3-5.0) Bedside Lactic Acid Venous 6.74 mmol/L (0.90-1.70) Test 07/01/16 13:15 Ethyl Alcohol mg/dL < 3.0 mg/dl (0-3) Laboratory results reviewed by me. Medications Administered Medications (Trade) Dose Ordered Sig/Fuad Route Start Time Stop Time Status Last Admin Dose Admin Lorazepam 2 mg 2 mg STK-MED ONCE .ROUTE 07/01/16 12:35 07/01/16 12:36 DC 07/01/16 12:35 2 MG Fomepizole/ Dextrose (Antizol Inj/D5 100ml) 101 ml @ 200 mls/hr NOW STAT IV 07/01/16 12:56 07/01/16 13:26 DC 07/01/16 13:09 200 MLS/HR Sodium Bicarbonate (Sodium Bicarbonate 8.4% Inj) 50 ml STK-MED ONCE IV 07/01/16 12:55 07/01/16 12:56 DC 07/01/16 12:55 50 ML Sodium Bicarbonate (Sodium Bicarbonate 8.4% Inj) 100 ml STK-MED ONCE IV 07/01/16 12:57 07/01/16 12:59 DC 07/01/16 12:57 100 ML ECG Indication: other (cardiac arrest) Rate (beats per minute): 97 Rhythm: atrial fibrillation Findings: no acute ischemic change, other (LVH) ED Course 1228: The patient was evaluated in room A1. A complete history and physical exam was performed. 1237: NSS 1000 ml @ 200 mls/hr. 1240: Dr. Quintero, Billing Clerk, is in the ED to evaluate the patient. 1243: We received an update from police that the patient was supposed to be detained to go to care home at 1300 today. He supposedly drank something prior to the incident according to his family. He did leave a suicide note. 1256: Spoke with Dr. Stephenson, [facility]ist. The patient will be evaluated. 1321: [facility] I discussed the case with him. Medical Decision Differential diagnosis includes cardiac arrest, medication overdose, dysrhythmia , anoxic arrest, suicidality, electrolyte imbalance, anemia, NM, brain injury, cervical thoracic or lumbar spine fracture. There is a mild leukocytosis which could be consistent with infection or the stress of his presentation. No concerning anemia. No significant electrolyte abnormality or kidney failure. There was no hepatitis. The patient appeared to be in a euthyroid state. ABG demonstrates a severe respiratory acidosis--of note, the respiratory rate was increased on the ventilator after the findings were noted on the ABG. Chest x-ray does not show CHF or pneumonia. The endotracheal tube is in proper position. Brain CT shows no acute bleed or mass effect. CTs of the cervical, thoracic and lumbar spine do not show any acute fractures. Chest CT shows possible aspiration pneumonia, no other acute process noted. Abdominal and pelvis CT does not show any acute solid organ injury or acute surgical process. Urinalysis does not show infection. Urine tox is negative. Aspirin, Tylenol and alcohol levels are undetectable. EKG shows A. fib, no acute ischemia. Cardiac enzyme testing times one is not elevated. There is no coagulopathy. The patient was aggressively managed. He was maintained on the ventilator. He received IV saline, was given IV Ativan. A code Arctic was initially called but then canceled as the welding machine assembler felt cooling was not necessary. The welding machine assembler has assumed care of the patient and the patient is being transferred to the intensive care unit. The patient presents after a presumed respiratory arrest. He did achieve return of spontaneous circulation prior to arrival to the ER. He remains unresponsive. There is some clonus noted of his lower extremities. He is diaphoretic and he has copious secretions. The cause for his event today is unclear, of course, an intentional ingestion is our biggest concern, at this point, the type of potential ingested substances is not clear. Consults Time Called: 1250 Consulting Physician: Dr. Stephenson [facility] Returned Call: [phone]: Spoke with Dr. Stephenson [facility]. The patient will be evaluated. Impression Primary Impression: Cardiac arrest Additional Impression: Poisoning Critical Care I have personally spent greater than 35 minutes of critical care time in the direct management of this patient. This includes bedside care, interpretation of diagnostic studies, and testing, discussion with consultants, patient, and family members, and other required patient management activities. This 35 minutes is in excess of all separately billable procedures. Scribe Attestation The scribe's documentation has been prepared under my direction and personally reviewed by me in its entirety. I confirm that the note above accurately reflects all work, treatment, procedures, and medical decision making performed by me. Departure Information Dispostion Other (Being Evaluated By Billing Clerk) Problem Qualifiers
[2016-07-01] MEDS ORDERED: PHENYLEPHRINE HCL INJ 10 MG/ML VIAL ONE (17:25)
[2016-07-01 17:26] LABS: ISTAT ALLEN TEST Pass; ISTAT ARTERIAL BLOOD GAS HCO3 23 meq/L (19-24); ISTAT ARTERIAL BLOOD GAS PCO2 81 mmHg (35-46); ISTAT ARTERIAL BLOOD GAS PO2 63 mmHg (80-95); ISTAT ARTERIAL BLOOD GAS pH 7.06 (7.35-7.45); ISTAT CARBON DIOXIDE 25 mEq/l (24-31); ISTAT DELIVERY SYSTEM Ventilator; ISTAT FIO2 60 %; ISTAT PEEP 10; ISTAT RATE 16; ISTAT SITE R Radial; VE 7.2; Vt 450
[2016-07-01] MEDS ORDERED: PHENYLEPHRINE HCL INJ 20 MG in DEXTROSE 5% 500ML 500 ML IV SCH (17:26)
[2016-07-01] MEDS ORDERED: NURSING VERBAL MED ORDER ONE (17:45)
[2016-07-01] MEDS ORDERED: NOREPINEPHRINE BIT INJ 8 MG in DEXTROSE 5% 500ML 500 ML IV SCH (18:00)
[2016-07-01] MEDS ORDERED: NOREPINEPHRINE BIT INJ 8 MG in DEXTROSE 5% 500ML 500 ML IV STA (18:01)
[2016-07-02] MEDS ORDERED: LEVETIRACETAM IV 500 MG in DEXTROSE 5% 100ML 100 ML IV SCH (05:00)
--- NOTE | 2016-07-02 10:39 | EEG Procedure Note ---
EEG Procedure Note Date of Service Jul 01, 2016. Start / End Times Start Time: 4:20 PM End Time: 5:00 PM Referring Physician Sam Ibarra History This is a 36-year-old male that was found unresponsive. EEG for further evaluation. Description This is a 21 electrode video EEG with a single channel dedicated to limited EKG. The electrodes were placed in accordance with the International 10-20 system. Hyperventilation and photic stimulation were not done. At the start of this recording the patient was unresponsive. Background was composed of rhythmic polymorphic high amplitude 5-6 Hz theta frequencies that were sharply contoured and often had a notched appearance. There was no clinical correlation on video. At 4:25 PM there was the appearance of brief intermittent 2 seconds or less background suppression of activity that clinically appear to correlate with benzodiazepine medication administration. After this time there appeared to be more well organized generalized high amplitude spike and slow wave activity at 4-6 Hz that would fluctuate in frequency. At 4:47 PM background activity changed to moderate amplitude 3-5Hz polymorphic delta and theta activity. After 4:52 PM background activity was composed of generalized low to moderate amplitude predominantly 1-2 Hz delta frequencies with rare intermixed theta activity up to 7 Hz. There was no sleep transients. Interpretation This is a abnormal stat EEG secondary to nonconvulsive status epilepticus. Clinical Correlation This EEG was consistent with nonconvulsive status epilepticus. Status epilepticus appear to have been broken at 4:47 PM. ICU automobile mechanic supervisor was aware of EEG results at that time of this EEG and was making real time medication adjustments based off of the EEG.
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
== END 2016-07-01 19:15 | disposition short-term general hospital (02) | DRG 917 ==
LOC: EDBD 12:30 → C.ED 12:33 → C.MSICU 13:15
PROVIDERS: ADMIT Hospitalist; ATTEND Hospitalist
PROC: 5A1935Z Respiratory Ventilation, Less than 24 Consecutive Hours (ICD-10-PCS; principal; 2016-07-01)
PROC: 02HV33Z Insertion of Infusion Device into Superior Vena Cava, Percutaneous Approach (ICD-10-PCS; 2016-07-01)
DX: T60.0X2A Toxic effect of organophosphate and carbamate insecticides, intentional self-harm, initial encounter (principal); I46.8 Cardiac arrest due to other underlying condition; E87.2 Acidosis; R56.9 Unspecified convulsions; I48.91 Unspecified atrial fibrillation; R68.0 Hypothermia, not associated with low environmental temperature; F11.10 Opioid abuse, uncomplicated; Z65.3 Problems related to other legal circumstances; Y92.029 Unspecified place in mobile home as the place of occurrence of the external cause